=== PATIENT | female | born 1985 | race Caucasian/White ===

== ENCOUNTER → 2024-12-15 | Outpatient (CLI) | payer MEDICAID, SELFPAY ==
[2024-12-15 11:23] LABS: Hematocrit 38.8 % (37-47); Hemoglobin 12.5 g/dL (12.0-15.0); Immature Granulocytes Count 0.030 X10^3/uL (0.0-0.0); Mean Corp Hgb Conc 32.2 g/dL (32-36); Mean Corpuscular Volume 78.7 fL (81-99); Mean Platelet Vol. 11.4 fl (6.2-12.0); NRBC Flagged by Analyzer 0 % (0-5); Platelet Count 251 K/mm3 (150-450); RBC Distribution Width CV 13.2 % (11.6-14.6); RBC Distribution Width SD 37.4 fl (35.1-43.9); Red Blood Count 4.93 M/mm3 (4.2-5.4); White Blood Count 6.6 K/mm3 (4.4-11.0)
[2024-12-15 12:05] LABS: AST(SGOT) 15 U/L (<=31); Alanine Aminotransfer ALT/SGPT 20 U/L (<=34); Albumin, Serum 4.3 g/dL (3.5-5.0); Alkaline Phosphatase 75 U/L (35-104); Anion Gap 11 (5-15); BUN 9 mg/dL (4-19); BUN/Creat Ratio 12.5 RATIO (10-20); Calcium,Total 9.4 mg/dL (7.6-11.0); Carbon Dioxide 18.5 mmol/L (21.0-32.0); Chloride 108 mmol/L (98-108); Cholesterol 260 mg/dL (<=200); Globulin 3.0 g/dL (2.2-4.2); Glucose 95 mg/dL (70-99); Low Density Lipoprotein Calc. 179 mg/dL; Potassium 4.3 mmol/L (3.3-5.1); Triglycerides 111 mg/dL; Very Low Density Lipoprotein 22 mg/dL (5-40); cholesterol:hdl ratio screen 4.42
[2024-12-15 13:02] LABS: Ferritin 13 ng/mL (22-378); Free T3 3.5 pg/mL (2.18-3.98); Iron 59 ug/dL (50-170); Iron Binding Capacity,Total 437 ug/dL (250-450); Iron Binding Capacity,Unsat 378 ug/dL (228-428); Vitamin B12 532 pg/mL (180-914); Vitamin D,25 Hydroxy 50.7 ng/mL (30-100)
== END | disposition home or self-care (01) ==
LOC: LAB 10:44
PROVIDERS: Referring Provider Nurse Practitioner Family; Visit Provider Nurse Practitioner Family
DX: F41.8 Other specified anxiety disorders (principal); R53.83 Other fatigue; Z13.220 Encounter for screening for lipoid disorders; Z13.1 Encounter for screening for diabetes mellitus
CPT/HCPCS: 36415; 80053; 80061; 82306; 82607; 82728; 83036; 83540; 83550; 84439; 84443; 84481; 85025; 86376

== ENCOUNTER → 2024-12-29 | Outpatient (CLI) | payer MEDICAID, SELFPAY ==
[2024-12-29 10:46] LABS: CORTISOL AM 11.70 ug/dL (6.02-18.40)
== END | disposition home or self-care (01) ==
LOC: LAB 09:27
PROVIDERS: PCP Nurse Practitioner Family; Referring Provider Nurse Practitioner Family; Visit Provider Nurse Practitioner Family
DX: G47.00 Insomnia, unspecified (principal); R53.83 Other fatigue
CPT/HCPCS: 36415; 82533

== ENCOUNTER 2025-04-11 04:44 | Emergency (ER) | payer MEDICAID, SELFPAY ==
[2025-04-11 04:45] VITALS: BP 184/122; PULSE 89; RESP 18; TEMP 35.9; O2SAT 98; BMI 36.1
[2025-04-11] MEDS: Orphenadrine 100 MG Tablet PO (05:04)
[2025-04-11] MEDS: Ketorolac 30 MG/ML Syringe IM (05:05)
--- NOTE | 2025-04-11 05:15 | CT_ITS ---
PROCEDURE: SPINE LUMBAR WITHOUT CONTRAST 04/11/2025 REASON FOR EXAM: BACK PAIN TECHNIQUE: Procedure Code: CTSPL Modality: CT Procedure: SPINE LUMBAR WITHOUT CONTRAST Coronal and Sagittal reconstruction series were provided. One or more dose reduction techniques were used (e.g., Automated exposure control, adjustment of the mA and/or kV according to patient size, use of iterative reconstruction technique COMPARISON: none RADIATION DOSE SUMMARY: CTDI Vol 22.99 mGy DLP :785.6 mGycm FINDINGS: Straightened lumbar lordosis denoting myospasm. Normal vertebral bodies height. Intact vertebral bodies and neural arches. No definite fractures could be detected. Segmental disc analysis level by level: L1-L2: There is no significant disc herniation or neural foraminal narrowing visualized. Central canal is unremarkable. No sign of lateral recess stenosis. Nerve roots are normal. L2-L3: There is no significant disc herniation or neural foraminal narrowing visualized. Central canal is unremarkable. No sign of lateral recess stenosis. Nerve roots are normal. L3-L4: a diffuse disc bulge with left paracentral-left foraminal disc protrusion indenting the theca and encroaching upon the related neural exit foramina inducing marked left and mild to moderate right exiting nerve roots compression. L4-L5: a diffuse disc bulge indenting the theca and encroaching upon the related neural exit foramina inducing mild exiting nerve roots compression. L5-S1: There is no significant disc herniation or neural foraminal narrowing visualized. Central canal is unremarkable. No sign of lateral recess stenosis. Nerve roots are normal. Intact sacroiliac joints showing intra-articular gas luecncies. No paraspinal soft tissue masses. CT/Spine Lumbar without Contrast IMPRESSION: Straightened lumbar lordosis denoting myospasm. No displaced vertebral fractures, structural collapse or dislocation. L3-L4: a diffuse disc bulge with left paracentral-left foraminal disc protrusio n inducing marked left and mild to moderate right exiting nerve roots compression. L4-L5: a diffuse disc bulge inducing mild exiting nerve roots compression. Reading [facility]
--- NOTE | 2025-04-11 05:33 | EX.ED.DYSGE1 ---
HPI History of Present Illness Chief Complaint: Back Informant: patient Narrative Narrative: Patient is a 39-year-old female who reports no significant past medical history. 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 She states that she was doing this the patient felt weak and decided to try to sit down. She states that she caught the patient and lowered her to the ground and when she did this there was a pop in her low back and she reports sudden onset of pain. She states she was able to eventually get up but she has noticed persistent pain in the low back despite time and taking [id number] medication. She denies any loss of bowel or bladder control or IV drug use. She also states that there is been no recent back procedures or surgeries. She denies any urinary symptoms such as hematuria or dysuria. However she has had persistent pain for approximately 12 hours that is not responding to time and rest as well as [id number] medication and with this presents for evaluation [facility] Medical History no medical history no medical history Home Medications ?Medication ?Instructions ?Recorded ?Last Taken ?Type diazepam 5 mg tablet (Valium) 5 mg PO TID PRN muscle spasm 5 04/11/25 Unknown Rx days #15 tabs oxycodone-acetaminophen 5 mg-325 1 tab PO Q6H PRN pain 3 days #12 04/11/25 Unknown Rx mg tablet (Percocet) tabs Allergy/AdvReac Type Severity Reaction Status Date / Time No Known Allergies Allergy Verified 04/11/25 04:46 Family History no significant family his Surgical History no surgical history Social History Smoking Status: Current every day smoker tobacco type: cigarettes ROS ROS ED Constitutional Constitutional ED: Denies chills or fever(s) Cardiovascular Cardiovascular: Denies chest pain Respiratory/Chest Respiratory/Chest: Denies cough or dyspnea Gastrointestinal Gastrointestinal: Denies abdominal pain, diarrhea, nausea or vomiting Genitourinary Genitourinary ED: Denies dysuria, hematuria or urinary frequency Musculoskeletal Musculoskeletal: Reports back pain Integumentary Denies Abrasions or rash Neurologic Neurologic: Denies headache(s), paresthesias or weakness Hematologic/Lymphatic Hematologic/Lymphatic: Denies easy bleeding or easy bruising EXAM Physical Exam Const Vital Signs: 04/11/25 04:45 Temperature 96.7 F L Temperature Source Temporal Pulse Rate 89 Respiratory Rate 18 Blood Pressure 184/122 H Blood Pressure Mean 142 Pulse Ox 98 Oxygen Delivery Method Room Air Positive well nourished, well developed and obese General Appearance ED: well developed; Negative for pallor Nutritional Appearance: obese HEENT HEENT Narrative: Normocephalic atraumatic Eyes PERRL and EOMs intact bilaterally General Eye ED: Negative for scleral icterus Neck supple Resp normal respiratory effort and clear to auscultation bilaterally Cardio regular rate and regular rhythm Rate: other Other Details: Heart is regular rate and rhythm without murmurs rubs or gallops Radial and carotid pulses are equal and symmetric Back/Spine Back/Spine Narrative: No bony deformity or step-off of the thoracic or lumbar spine There is midline pain with palpation along the upper lumbar vertebrae There is also pain with palpation in the right paralumbar muscle belly region Pain worsens with extension and rotation No saddle anesthesia; negative straight leg raise; no clonus or Babinski; patellar reflexes are plus 1 out of 4 bilaterally No overlying soft tissue changes such as abrasions or ecchymosis or erythema or rash Extremity normal to inspection Neuro oriented x3, CN's II-XII intact bilaterally and no sensory deficits noted Sensorium / Orientation: alert Psych mental status grossly normal Skin no rashes or lesions noted and no wounds General Skin Exam: Negative for jaundice or pallor MDM MDM MDM Narrative Medical decision making narrative: Patient arrived to the ER hypertensive but otherwise with stable vitals. Hypertension is most likely related to pain response. She reported back pain after having to catch and hold a patient as they fell to the ground. She also reports hearing a pop at the time of injury. In order to assess for herniated disc versus compression fracture versus lumbosacral strain I did elect to perform a noncontrast CT of the low back. She denied loss of bowel or bladder control or IV drug use going against cauda equina or epidural abscess. There is also denied any recent injections or procedures which would go against osteomyelitis or discitis and therefore I felt no need for blood work. Symptoms appeared very musculoskeletal in nature and so I low concern for UTI or pyelonephritis and do not feel the need for urine sample. The patient was medicated with Toradol and Norflex and did have mild to moderate improvement of her symptoms. The CT scan revealed no sign of compression fracture or burst fracture. It did show bulging disks at L3-L4 and L4-L5 with thecal sac indentation but her physical exam did not reveal any type of radicular symptoms going against nerve is compression. I do feel symptoms are most likely due to musculoskeletal strain and as she does not have findings of neurovascular compromise or secondary infection and symptoms are worse with motion and therefore there is no need for further intervention in the ER. She will be placed on symptomatic medication and can follow-up Dr. Tyson/orthopedic spine regarding the back pain and CT findings History & Record Review Discussion w/independent historian: Patient Radiography Diagnostic Testing: Clinical Impression(s) from Imaging Studies Lumbar Spine CT 04/11/25 05:15 IMPRESSION: Straightened lumbar lordosis denoting myospasm. No displaced vertebral fractures, structural collapse or dislocation. L3-L4: a diffuse disc bulge with left paracentral-left foraminal disc protrusion inducing marked left and mild to moderate right exiting nerve roots compression. L4-L5: a diffuse disc bulge inducing mild exiting nerve roots compression. Reading Location: [place] [address] Discharge Plan Triage Chief Complaint: Back ED Provider: Cheikh Schilling Dx/Rx/DC Orders Clinical Impression: Bulging lumbar disc, Acute myofascial strain of lumbosacral region, Spasm of back muscles Instructions: Anatomy of a Normal Spine, ED Back Sprain/Strain Prescriptions: New oxycodone-acetaminophen [Percocet] 5-325 mg tablet 1 tab PO Q6H PRN (Reason: pain) 3 Days Qty: 12 0RF diazepam [Valium] 5 mg tablet 5 mg PO TID PRN (Reason: muscle spasm) 5 Days Qty: 15 0RF Stand Alone Forms: ED Work / School Excuse Primary Care Provider: Domenica Watkins Referrals: Domenica Watkins, ERICK [Primary Care Provider, Family Practice] Star Tyson MD [Med Staff - Active Staff, Orthopedics] Referral Note: Bulging lumbar disks Activity Restrictions/Additional Instructions: Please continue to stretch and heat your back to help reduce pain and speed healing. Take the prescribed medication for improved pain and muscle spasm control. Follow-up with orthopedics/Dr. Tyson for further evaluation and to discuss need for MRI to further assess the abnormalities noted on your CT scan today. Return to the ER should you have any further concerns Print Language: [place] Island[place] Disposition Disposition: Home, Self Care
[2025-04-11 06:35] VITALS: BP 151/74; PULSE 69; RESP 18; TEMP 35.9; O2SAT 98
== END 2025-04-11 06:36 | disposition home or self-care (01) ==
PROVIDERS: Emergency Provider Emergency Medicine; PCP Nurse Practitioner Family; Visit Provider Emergency Medicine
DX: S39.012A Strain of muscle, fascia and tendon of lower back, initial encounter (principal); F17.210 Nicotine dependence, cigarettes, uncomplicated; M51.369 Other intervertebral disc degeneration, lumbar region without mention of lumbar back pain or lower extremity pain; M62.830 Muscle spasm of back; E66.9 Obesity, unspecified; X50.0XXA Overexertion from strenuous movement or load, initial encounter; Y93.F9 Activity, other caregiving; Y99.0 Civilian activity done for income or pay
CPT/HCPCS: 72131; 96372; 99283